=== PATIENT | female | born 1990 | race Caucasian/White ===

== ENCOUNTER 2018-04-14 06:58 | Emergency (ER) | payer BC ==
[2018-04-14 07:37] LABS: CHLORIDE,CL 102 mmol/L (98-107); SODIUM,NA 139 mmol/L (136-145)
[2018-04-14] MEDS ORDERED: Sodium Chloride 0.9% 10 ML Syringe FLUSH PRN (07:50)
[2018-04-14] MEDS ORDERED: Sodium Chloride 0.9% 1,000 ML IV ONE (07:51)
[2018-04-14] MEDS ORDERED: Ketorolac 30 MG/ML SDV IVPUSH ONE (07:52)
--- NOTE | 2018-04-14 07:54 | EDM.PDOC ---
ED HPI GENERAL MEDICAL PROBLEM - General Chief Complaint: General Stated Complaint: Right lower side thoracic pain Time Seen by Provider: 04/14/18 07:30 Source of Information: Reports: Patient History Limitations: Reports: No Limitations - History of Present Illness INITIAL COMMENTS - FREE TEXT/NARRATIVE: Patient comes to ER with complaint of right side pain located in lower rib area. Pain started initially around 6pm last night and was actually in the right clavicular area. It then started to concentrate in the lower portion of the chest. Worse when taking a breath as well as when she tried to lean forward while sitting in bed for exam. Denies any recent/remote injury. No lifestyle changes recently. No med changes. Is a smoker. No fevers/chills/sweats No SOB/cough/recent cold Eating OK. No N/V/D or constipation reported. No change in pain with eating/drinking/change in position Went off her control pill two months ago, has not had period yet. Is on chronic hydrocodone for back pain issues. Hx of scoliosis per patient. Right Lower Thoracic Pain Score (Numeric/FACES): 9 - Related Data Allergies Allergy/AdvReac Type Severity Reaction Status Date / Time Penicillins Allergy Other Verified 04/14/18 07:00 Home Meds: Home Meds Hydrocodone/Acetaminophen [Hydrocodon-Acetaminophn 10-325] 1 tab PO Q4HR PRN [History] Past Medical History - Past Health History Medical/Surgical History: Denies Medical/Surgical History Musculoskeletal History: Reports: Back Pain, Chronic Social & Family History - Tobacco Use Smoking Status *Q: Current Every Day Smoker Years of Tobacco use: 15 Packs/Tins Daily: 0.5 - Caffeine Use Caffeine Use: Reports: Soda - Recreational Drug Use Recreational Drug Use: No ED ROS GENERAL - Review of Systems Review Of Systems: See Below Constitutional: Reports: No Symptoms HEENT: Reports: No Symptoms Respiratory: Reports: Pleuritic Chest Pain. Denies: Shortness of Breath, Wheezing, Cough, Sputum, Hemoptysis Cardiovascular: Reports: Chest Pain (see HPI). Denies: Dyspnea on Exertion, Edema, Lightheadedness, Orthopnea, Palpitations, Syncope GI/Abdominal: Reports: Abdominal Pain (RUQ near lower right rib margin). Denies : Anorexia, Black Stool, Bloody Stool, Constipation, Diarrhea, Decreased Appetite, Difficulty Swallowing, Distension, Flatus, Nausea, Vomiting : Reports: No Symptoms Musculoskeletal: Reports: No Symptoms Skin: Reports: No Symptoms Neurological: Reports: No Symptoms Psychiatric: Reports: No Symptoms ED EXAM, GENERAL - Physical Exam Exam: See Below Exam Limited By: No Limitations General Appearance: Alert, No Apparent Distress, Obese Eye Exam: Bilateral Eye: EOMI, PERRL Ears: Normal External Exam Nose: No: Nasal Deformity, Nasal Swelling, Nasal Drainage Throat/Mouth: Normal Inspection, Normal Lips, Normal Voice, No Airway Compromise Head: Atraumatic, Normocephalic Neck: Normal Inspection, Supple, Non-Tender, Full Range of Motion Respiratory/Chest: No Respiratory Distress, Lungs Clear, Normal Breath Sounds, No Accessory Muscle Use, Chest Non-Tender Cardiovascular: Regular Rate, Rhythm, No Edema, No Murmur Peripheral Pulses: 2+: Radial (L), Radial (R) GI/Abdominal: Normal Bowel Sounds, No Distention, Tender (right upper quadrant discomfort with palpation. Mild discomfort with palpation in epigastric area and lateral right abdomen. ). No: Guarding, Rigid, Rebound (Female) Exam: Deferred Rectal (Female) Exam: Deferred Extremities: Normal Inspection, Normal Range of Motion (Moving arms overhead does not affect pain complaint), Non-Tender, No Pedal Edema, Normal Capillary Refill Neurological: Alert, Oriented, CN II-XII Intact, Normal Cognition, Normal Gait, No Motor/Sensory Deficits Psychiatric: Normal Affect, Normal Mood, Tearful (at times) Skin Exam: Warm, Dry, Intact, Normal Color EKG INTERPRETATION EKG Date: 04/14/18 Time: 07:17 Rhythm: NSR Rate (Beats/Min): 70 [place]: Normal P-Wave: Present QRS: Normal ST-T: Normal QT: Normal Comparison: NA - No Prior EKG Course - Vital Signs Last Recorded V/S: Last Vital Signs Temp 36.6 C 04/14/18 07:01 Pulse 67 04/14/18 09:19 Resp 16 04/14/18 09:19 BP 118/91 H 04/14/18 09:19 Pulse Ox 100 04/14/18 09:19 - Orders/Labs/Meds Orders: Active Orders 24 hr Category Date Time Status EKG Documentation Completion [RC] ASDIRECTED Care 04/14/18 07:10 Active Abdomen Pelvis w Cont [CT] Stat Exams 04/14/18 09:27 Taken Chest 2V [CR] Stat Exams 04/14/18 07:43 Taken Gallbladder [Abdomen Ltd] [US] Stat Exams 04/14/18 07:51 Taken URINALYSIS W/MICROSCOPIC [UA W/MICROSCOPIC] [URIN] Stat Lab 04/14/18 09:30 Ordered Sodium Chloride 0.9% [Saline Flush] Med 04/14/18 07:50 Active 10 ml FLUSH ASDIRECTED PRN Saline Lock Insert [OM.PC] Routine Oth 04/14/18 07:51 Ordered Medication Orders Sodium Chloride (Saline Flush) 10 ml FLUSH ASDIRECTED PRN PRN Reason: Keep Vein Open Last Admin: 04/14/18 08:14 Dose: 10 ml Labs: Laboratory Tests 04/14/18 04/14/18 04/14/18 Range/Units 07:10 07:10 07:20 WBC 9.2 (4.0-10.2) K/uL RBC 4.67 (3.77-5.09) M/uL Hgb 14.4 (11.7-15.5) g/dL Hct 42.1 (34.0-46.0) % MCV 90.1 (84.0-98.0) fL MCH 30.8 (28.2-33.3) pg MCHC 34.2 (31.7-36.0) g/dL RDW 12.5 (11.2-14.1) % Plt Count 275 (150-350) K/uL Neut % (Auto) 51.4 (45.0-80.0) % Lymph % (Auto) 38.4 (10.0-50.0) % [place] % (Auto) 7.2 (2.0-14.0) % Eos % (Auto) 2.7 (0.0-5.0) % Baso % (Auto) 0.3 (0.0-2.0) % Neut # (Auto) 4.73 (1.40-7.00) K/uL Lymph # (Auto) 3.53 H (0.50-3.50) K/uL [place] # (Auto) 0.66 (0.00-1.00) K/uL Eos # (Auto) 0.25 (0.00-0.50) K/uL Baso # (Auto) 0.03 (0.00-0.20) K/uL D-Dimer, Quantitative < 100 (0-400) ng/mL Sodium 139 (136-145) mmol/L Potassium 3.9 (3.5-5.1) mmol/L Chloride 102 (98-107) mmol/L Carbon Dioxide 25.3 (21.0-32.0) mmol/L BUN 17 (7-18) mg/dL Creatinine 0.74 (0.51-1.17) mg/dL Est Cr Clr Drug Dosing 109.08 mL/min Estimated GFR (MDRD) > 60 mL/min Glucose 108 H (74-106) mg/dL Calcium 8.9 (8.5-10.1) mg/dL Total Bilirubin 0.5 (0.2-1.0) mg/dL AST 24 (15-37) U/L ALT 51 (12-78) U/L Alkaline Phosphatase 80 (46-116) IU/L Troponin I 0.000 (0.000-0.056) ng/mL Total Protein 7.8 (6.4-8.2) g/dL Albumin 3.8 (3.4-5.0) g/dL Amylase 35 (25-115) U/L Lipase 141 (73-393) U/L HCG, Qual (NEGATIVE) Specimen Type Urine Color Urine Appearance Urine pH (5.0-9.0) Ur Specific [place] (1.005-1.030) Urine Protein (NEGATIVE) mg/dL Urine Glucose (UA) (NEGATIVE) mg/dL Urine Ketones (NEGATIVE) mg/dL Urine Occult Blood (NEGATIVE) Urine Nitrite (NEGATIVE) Urine Bilirubin (NEGATIVE) Urine Urobilinogen (0.2-1.0) E.U./dL Ur Leukocyte Esterase (NEGATIVE) Urine RBC /HPF Urine WBC /HPF Ur Epithelial Cells /LPF Urine Bacteria (NONE TO FEW) /HPF Urine Mucus (NEGATIVE) /LPF 04/14/18 04/14/18 Range/Units 07:20 09:30 WBC (4.0-10.2) K/uL RBC (3.77-5.09) M/uL Hgb (11.7-15.5) g/dL Hct (34.0-46.0) % MCV (84.0-98.0) fL MCH (28.2-33.3) pg MCHC (31.7-36.0) g/dL RDW (11.2-14.1) % Plt Count (150-350) K/uL Neut % (Auto) (45.0-80.0) % Lymph % (Auto) (10.0-50.0) % [place] % (Auto) (2.0-14.0) % Eos % (Auto) (0.0-5.0) % Baso % (Auto) (0.0-2.0) % Neut # (Auto) (1.40-7.00) K/uL Lymph # (Auto) (0.50-3.50) K/uL [place] # (Auto) (0.00-1.00) K/uL Eos # (Auto) (0.00-0.50) K/uL Baso # (Auto) (0.00-0.20) K/uL D-Dimer, Quantitative (0-400) ng/mL Sodium (136-145) mmol/L Potassium (3.5-5.1) mmol/L Chloride (98-107) mmol/L Carbon Dioxide (21.0-32.0) mmol/L BUN (7-18) mg/dL Creatinine (0.51-1.17) mg/dL Est Cr Clr Drug Dosing mL/min Estimated GFR (MDRD) mL/min Glucose (74-106) mg/dL Calcium (8.5-10.1) mg/dL Total Bilirubin (0.2-1.0) mg/dL AST (15-37) U/L ALT (12-78) U/L Alkaline Phosphatase (46-116) IU/L Troponin I (0.000-0.056) ng/mL Total Protein (6.4-8.2) g/dL Albumin (3.4-5.0) g/dL Amylase (25-115) U/L Lipase (73-393) U/L HCG, Qual Negative (NEGATIVE) Specimen Type Urincc Urine Color Dark yellow Urine Appearance Clear Urine pH 5.5 (5.0-9.0) Ur Specific [place] 1.025 (1.005-1.030) Urine Protein Negative (NEGATIVE) mg/dL Urine Glucose (UA) Negative (NEGATIVE) mg/dL Urine Ketones Negative (NEGATIVE) mg/dL Urine Occult Blood Negative (NEGATIVE) Urine Nitrite Negative (NEGATIVE) Urine Bilirubin Negative (NEGATIVE) Urine Urobilinogen 0.2 (0.2-1.0) E.U./dL Ur Leukocyte Esterase Negative (NEGATIVE) Urine RBC 0-5 /HPF Urine WBC 0-5 /HPF Ur Epithelial Cells Moderate H /LPF Urine Bacteria Rare (NONE TO FEW) /HPF Urine Mucus Few H (NEGATIVE) /LPF Meds: Medications Generic Name Dose Route Start Last Admin Trade Name Freq PRN Reason Stop Dose Admin Sodium Chloride 10 ml 04/14/18 07:50 04/14/18 08:14 Saline Flush FLUSH 10 ml ASDIRECTED PRN Administration Keep Vein Open Discontinued Medications Generic Name Dose Route Start Last Admin Trade Name Freq PRN Reason Stop Dose Admin Sodium Chloride 1,000 mls @ 999 mls/hr 04/14/18 07:51 04/14/18 08:16 Normal Saline IV 04/14/18 08:51 999 mls/hr .BOLUS ONE Administration Iopamidol 100 ml 04/14/18 10:30 04/14/18 10:49 Isovue-300 (61%) IVPUSH 04/14/18 10:31 100 ml ONETIME ONE Administration Ketorolac Tromethamine 30 mg 04/14/18 07:52 04/14/18 08:09 Toradol IVPUSH 04/14/18 07:53 30 mg ONETIME ONE Administration - Radiology Interpretation Free Text/Narrative:: Chest xray overall unremarkable. Compared to previous xrays. Lateral view shows mild change that could be secondary to technique or could reflect subtle infiltrate. - Re-Assessments/Exams Free Text/Narrative Re-Assessment/Exam: Pain improved after Toradol. US requested as well as labs. EKG showed NSR. Troponin and DDimer negative. Labs overall unremarkable. HCG negative. Chest xray did not show obvious acte process. No history of hematuria/flank pain and no discomfort with palpation and percussion of back. Pain did appear to be more abdominal in nature based on exam. CT of abdomen and pelvis ordered. Free Text/Narrative Re-Assessment/Exam: 04/14/18 12:07 CT of abdomen/pelvis negative for any changes/stone/appendicitis/inflammatory signs. Chest xray read as normal. Uncertain as to specific cause of pain. Cannot rule out musculoskeletal cause. Cannot rule out GI cause. Does not appear cardiac or pulmonary at this point in time. Will have patient go home and observe for changes over the next 24 hours. Follow up appointment made for 8:45 AM at hospital clinic for re-evaluation. Differential as well as precautions reviewed with patient. Will have her do stool guiac check at home/HPylorie screen and bring it to AM appointment. She does have hydrocodone at home that she can use PRN for pain. 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 Recently decreased to 80 monthly. She does not feel that this medication has caused GI problems in past. To follow up as needed otherwise if she has acute worsening. Departure - Departure Time of Disposition: 12:12 Disposition: Home, Self-Care 01 Condition: Good Clinical Impression: RUQ abdominal pain, Chronic narcotic dependence - Discharge Information *PRESCRIPTION DRUG MONITORING PROGRAM REVIEWED*: Yes *COPY OF PRESCRIPTION DRUG MONITORING REPORT IN PATIENT VINH: No Instructions: Abdominal Pain, Adult, [id number], Pain Without a Known Cause Referrals: PCP,Unknown [Primary Care Provider] - Forms: ED Department Discharge Additional Instructions: Observe for changes/new symptoms over the next 24 hours. See if anything else specifically triggers/improves symptoms. Follow up tomorrow morning at 8:45 in clinic for recheck. Follow up otherwise as needed if you have sudden problems - My Orders Last 24 Hours: My Active Orders 04/14/18 07:10 EKG Documentation Completion [RC] ASDIRECTED 04/14/18 07:43 Chest 2V [CR] Stat 04/14/18 07:50 Sodium Chloride 0.9% [Saline Flush] 10 ml FLUSH ASDIRECTED PRN 04/14/18 07:51 Gallbladder [Abdomen Ltd] [US] Stat Saline Lock Insert [OM.PC] Routine 04/14/18 09:27 Abdomen Pelvis w Cont [CT] Stat 04/14/18 09:30 URINALYSIS W/MICROSCOPIC [UA W/MICROSCOPIC] [URIN] Stat - Assessment/Plan Last 24 Hours: My Active Orders 04/14/18 07:10 EKG Documentation Completion [RC] ASDIRECTED 04/14/18 07:43 Chest 2V [CR] Stat 04/14/18 07:50 Sodium Chloride 0.9% [Saline Flush] 10 ml FLUSH ASDIRECTED PRN 04/14/18 07:51 Gallbladder [Abdomen Ltd] [US] Stat Saline Lock Insert [OM.PC] Routine 04/14/18 09:27 Abdomen Pelvis w Cont [CT] Stat 04/14/18 09:30 URINALYSIS W/MICROSCOPIC [UA W/MICROSCOPIC] [URIN] Stat
[2018-04-14] MEDS ORDERED: Iopamidol 612 MG/ML 100 ML Bottle IVPUSH ONE (10:30)
== END 2018-04-14 12:45 | disposition home or self-care (01) ==
LOC: LL.ED 06:58
DX: R10.11 Right upper quadrant pain (principal); F11.20 Opioid dependence, uncomplicated; F17.210 Nicotine dependence, cigarettes, uncomplicated; Z88.0 Allergy status to penicillin
CPT/HCPCS: 36415; 71046; 74177; 76705; 80053; 81001; 82150; 83690; 84484; 84703; 85025; 85379; 93005; 96361; 96374; 99285; J1885; J7030; J7050; Q9967

== ENCOUNTER 2023-11-16 14:26 | Emergency (ER) | payer BC ==
[2023-11-16] MEDS: traMADol 50 MG Tab PO ONE (14:41)
[2023-11-16] MEDS: Acetaminophen 325 MG Tab PO ONE (14:41)
[2023-11-16] MEDS: Ketorolac 10 MG Tab PO ONE (15:23)
[2023-11-16] MEDS: Take Home: traMADol 50 MG, 4 Tab Pack PO ONE ×2 (15:25)
== END 2023-11-16 15:30 | disposition home or self-care (01) ==
LOC: LL.ED 14:26
DX: S89.92XA Unspecified injury of left lower leg, initial encounter (principal); Z88.0 Allergy status to penicillin; W18.40XA Slipping, tripping and stumbling without falling, unspecified, initial encounter
CPT/HCPCS: 73562-LT; 99283; A9270-GY